=== PATIENT | male | born 1935 | race Caucasian/White ===

== ENCOUNTER 2016-09-16 12:03 | Emergency (ER) | payer MEDICARE ==
[~2016-09-16] VITALS: Ht 181.6 cm; Wt 100.0 kg
[~2016-09-16 12:03] MED LIST: ALBU8.5H2 IH; AMT25T PO; ASPI-973 PO; ATOR40TA69 PO; CLOP75TA28 PO; DIPH50C PO; HYDR-3740 PO; LORA1TAB PO; LOSA25TA21 PO; METF500T4 PO; METO-272 PO; MONT10TA23 PO; MULT-1018 PO; NITR0.4T6 SL; OMEG100027 PO; OMEP20CA11 PO; POTA10TA38 PO; RANI300C PO; TAMS0.4C29 PO; TRAZ-115 PO; VENL75CA PO
[2016-09-16 12:24] VITALS: BP 120/76; PULSE 75; RESP 16; O2SAT 91
[2016-09-16] MEDS ORDERED: DULO60CA61 (12:38)
[2016-09-16] MEDS ORDERED: POTA10TA12 (12:38)
[2016-09-16] MEDS ORDERED: RANI300T4 (12:38)
[2016-09-16 13:18] LABS: BASOPHILS % (AUTO) 0.2 % (0-3); EOSINOPHILS % (AUTO) 2.7 % (0-5); MONOCYTES % (AUTO) 9.7 % (4-12); Mean Corpuscular Hemoglobin 32.1 pg (27.0-35.0); Mean Corpuscular Volume 94.6 fL (81-100); NEUTROPHILS % (AUTO) 57.5 % (40-74); Platelet Count 182 bil/L (150-400)
[2016-09-16 14:07] LABS: TROPONIN T < 0.010 ug/L (0.0-0.011)
[2016-09-16 14:30] VITALS: BP 123/81; PULSE 69; RESP 20; O2SAT 94
--- NOTE | 2016-09-16 15:47 | ED.REPORT ---
HPI-General Illness Date of Service Sep 16, 2016 ED Provider: LadonnaRoberto DO 81yoM with PMH remarkable for CAD/NSTEMI and anxiety presents with 1 week of stated bilateral leg weakness. The patient states that over the last week he has had increasing weakness and fatigue in his legs which is described as endurance based. The patient denies trouble standing but says that he feels he has to shuffle his feet in baby steps to walk. The patient denies leg swelling, loss of coordination, pain, or numbness and tingling. The patient states that he has also had one bout of urinary incontinence with increased urinary frequency and urgency. The patient denies prior history of UTI or current dysuria or penile discharge. The patient denies pain on defecation or bowel incontinence. The patient recently had an MRI done in June and he does not know the results. He recently increased a medication by his PCP but he does not know which medication. Nursing Notes Stated Complaint: Bilateral Leg weakness Chief Complaint: General Complaint Nursing Notes Reviewed: Yes Allergies: Coded Allergies: Contrast Media (Verified Allergy, Severe, 09/20/15) Uncoded Allergies: IV CONTRAST (Allergy, Unknown, 02/04/13) Scheduled Amitriptyline (Amitriptyline) 25 Mg Tab 25 MG PO DAILY Aspirin (Aspirin) 81 Mg Tablet 81 MG PO DAILY Atorvastatin Calcium (Atorvastatin Calcium) 40 Mg Tablet 40 MG PO HS Clopidogrel (Clopidogrel) 75 Mg Tablet 75 MG PO DAILY Diphenhydramine Hcl (Benadryl) 50 Mg Capsule 25 MG PO HS Losartan Potassium (Losartan Potassium) 25 Mg Tablet 25 MG PO DAILY Metformin (Metformin) 500 Mg Tablet 500 MG PO BID Metoprolol Succinate ER (Metoprolol Succinate ER) 50 Mg Tab.er.24h 50 MG PO DAILY Montelukast (Montelukast) 10 Mg Tablet 10 MG PO HS Multivitamin (Multi Vitamin Daily) 1 Each Tablet 1 EACH PO DAILY [place]-3/Dha/Epa/Fish Oil ([place]-3 Fish Oil 1,000 mg Sfgl) 1,000 Mg Capsule 1, 000 MG PO DAILY Omeprazole (Omeprazole) 20 Mg Capsule.dr 20 MG PO DAILY Potassium Chloride (Potassium Chloride) 10 Meq Tab.er.prt 10 MEQ PO DAILY TAKE WITH FOOD Ranitidine (Ranitidine) 300 Mg Capsule 300 MG PO HS Tamsulosin ER (Tamsulosin ER) 0.4 Mg Cap.er.24h 0.4 MG PO DAILY Trazodone (Trazodone) 50 Mg Tablet 100 MG PO HS Venlafaxine ER (Effexor XR) 75 Mg Capsule 75 MG PO DAILY Scheduled PRN Albuterol HFA (Proair HFA) 8.5 Gm Hfa.aer.ad 2 PUFFS IH Q4 PRN PRN For Shortness of Breath Hydrocodone-Acetaminophen 10-325 mg (Hydrocodone-Acetaminophen 10-325 mg) 1 Each Tablet 1 TABLET PO Q6H PRN PRN For Pain Lorazepam (Lorazepam) 1 Mg Tablet 1-2 MG PO HS PRN PRN For Insomnia Miscellaneous Medications Duloxetine (Duloxetine) 60 Mg Capsule. Nitroglycerin SL (Nitroglycerin SL) 0.4 Mg Tab.subl 0.4 MG SL Potassium Chloride ER (Potassium Chloride ER) 10 Meq Tablet Ranitidine (Ranitidine) 300 Mg Tablet General Time Seen by MD: 13:00 Chief Complaint Urinary frequency, Weakness (bilateral leg) Hx Obtained From: Patient, Spouse Arrived By: Ambulance Sudden in Onset?: No Onset Occurred: 1 week ago Symptom Duration: Since onset Recent Healthcare: Recent doctor visit Similar Sx Previous: No Past Medical History Past Medical History Obstructive sleep apnea on Cpap Psoriasis Reports: Asthma, Coronary artery disease, Diabetes mellitus, GERD, Hyperlipidemia, Hypertension Reports: Obesity Past Surgical History Stents x5 Reports: Appendectomy, Cataract surgery Reports: Hip replacement, Knee replacement Smoking History Former Smoker Social History Alcohol Use: Denies alcohol use Drug Use: Denies drug use Ambulatory Status Cane Review of Systems Full Review of Systems Constitutional: Denies: Chills, Fever Eyes: Denies: Blurred bilateral, Eye pain bilateral Ears / Nose / Throat: Denies: Ear ringing bilateral, Hearing loss bilateral, Sore throat, Throat pain Respiratory: Denies: Hemoptysis, Non-productive cough, Pleuritic pain Cardiovascular: Denies: Chest pain, Edema, Palpitations GI: Denies: Abdominal pain, Constipation, Diarrhea, Nausea, Vomiting Male: Reports Urinary frequency, Reports Urinary urgency, Reports Urination increased, Denies Dysuria, Denies Flank pain, Denies Hematuria, Denies Penile discharge Musculoskeletal: Denies: Back pain, Extremity pain, Extremity swelling, Joint pain, Lumbar pain, Neck pain, Thoracic pain Hematologic: Denies Bleeding, Denies Bruising Endocrine: Reports: Polyuria, Denies: Polydipsia, Weight gain, Weight loss Skin: Denies Itching, Denies Rash, Denies Swelling Allergy / Immune: Denies: Rhinorrhea, Sneezing Neurologic: Reports: Bladder dysfunction, Lightheaded (one time on standing), Problem walking, Denies: Bowel dysfunction, Change LOC, Confusion, Dizziness, Headache, Numbness, Slurred speech, Syncope Psychiatric: Denies: Change mental status, Confusion Complete sys rev & neg: except as marked. Physical Exam Vital Signs Vital Signs Date Time Temp Pulse Resp B/P Pulse Ox O2 Delivery O2 Flow Rate FiO2 09/16/16 17:17 36.6 94 18 135/83 94 Room Air 09/16/16 14:30 69 20 123/81 94 Room Air 09/16/16 12:24 36.6 75 16 120/76 91 Room Air Initial VS: Reviewed General/Constitutional: Well-developed, Well-nourished Head / Eyes: Atraumatic, Normocephalic, PERRL ENT: Mucous membranes moist, Conjunctiva normal, No scleral icterus Neck: Supple, Non-tender, Full range of motion Respiratory: Breath sounds normal, Clear to auscultation, No respiratory distress Cardiovascular: Regular rate & rhythm, Heart sounds normal, Intact distal pulses Abdomen / GI: Soft, Non-tender, No guarding, No rebound, No distention Back: No CVA tenderness Lymphatic: No lymphadenopathy Extremities: Vascular intact, Neuro intact, No swelling, No tenderness Skin: Warm, Dry, No cyanosis Neurologic: Alert, Oriented, Nonfocal Psychiatric: Mood/affect normal, Behavior normal, Normal thought content General/Constitutional: Awake, Alert, No acute distress, Well appearing, Cooperative, Not toxic appearing Head / Eyes: Normocephalic, PERRL, EOMI, No photophobia, No scleral icterus, Conjunctiva NL ENT: Airway patent, Mucous membranes moist, Pharynx NL Neck: Supple, No meningismus, Full range of motion, No swelling, Non-tender, No masses Respiratory / Chest: Breath sounds NL, Breath sounds = bilat, No respiratory distress, No rales, No rhonchi, No wheezing, No chest tenderness Cardiovascular: Heart rate NL, Regular rhythm, Heart sounds NL, Cap refill not delayed, Peripheral circulation NL Abdomen: Soft, Non-tender, No guarding, No rebound, BS normoactive, No distention Lower Extremity / Pelvis / MS: Inspection NL, No swelling, Non-tender, No erythema, No deformity, Neurologic intact, Vascular intact, No edema Ankle / Foot: Inspection NL, No swelling, No erythema, Non-tender, No deformity , Neurologic intact, Vascular intact, No edema Neurologic: Speech NL, No motor deficits, No sensory deficits, CN II - XII intact, Cerebellar NL Interpretation & Diagnostics Lab Results Interpretation Result Diagram: 09/16/16 1310 09/16/16 1310 Test 09/16/16 12:33 09/16/16 13:10 09/16/16 15:21 Hold [place] Top Tube Received (Received) White Blood Count 8.2th/mm3 (3.8-10.1) Red Blood Count 4.08mil/mm3 (4.40-5.80) Hemoglobin 13.1g/dL (13.8-17.2) Hematocrit 38.6% (41.0-50.0) Mean Corpuscular Volume 94.6fL (81-100) Mean Corpuscular Hemoglobin 32.1pg (27.0-35.0) Mean Corpuscular Hemoglobin Concent 33.9% (32.0-37.0) Red Cell Distribution Width 12.4% (12.3-15.4) Platelet Count 182bil/L (150-400) Neutrophils (%) (Auto) 57.5% (40-74) Lymphocytes (%) (Auto) 29.5% (14-46) Monocytes (%) (Auto) 9.7% (4-12) Eosinophils (%) (Auto) 2.7% (0-5) Basophils (%) (Auto) 0.2% (0-3) Sodium Level 137mEq/L (134-144) Potassium Level 3.9mEq/L (3.5-5.2) Chloride Level 101mEq/L (97-108) Carbon Dioxide Level 20mmol/L (18-29) Blood Urea Nitrogen 11mg/dL (8-27) Creatinine 0.79mg/dL (0.76-1.27) Estimat Glomerular Filtration Rate 101mL/min (>59) Glucose Level 119mg/dL (60-99) Calcium Level 8.9mg/dL (8.5-10.1) Magnesium Level 1.6mg/dL (1.6-2.6) Total Bilirubin 0.8mg/dL (0.0-1.2) Aspartate Amino Transf (AST/SGOT) 22U/L (0-50) Alanine Aminotransferase (ALT/SGPT) 16U/L (0-44) Alkaline Phosphatase 46U/L (25-160) Troponin T < 0.010ug/L (0.0-0.011) Pro-B-Type Natriuretic Peptide 39.6pg/mL (0-486) Total Protein 7.3g/dL (6.4-8.4) Albumin 3.9g/dL (3.4-5.0) Urine Color Straw (YELLOW) Urine Appearance Hazy (CLEAR,HAZY) Urine pH 6.0 (5.0-8.0) Urine Specific [place] 1.025 (1.003-1.035) Urine Protein Negativemg/dL (NEG,TRACE) Urine Glucose (UA) Negativemg/dL (NEGATIVE) Urine Ketones Negativemg/dL (NEGATIVE) Urine Occult Blood Negative (NEGATIVE) Urine Nitrite Negative (NEGATIVE) Urine Bilirubin Negative (NEGATIVE) Urine Urobilinogen 1.0mg/dL (NORMAL) Urine Leukocyte Esterase Negative (NEGATIVE) Urine RBC 0-2/hpf (0-2) Urine WBC 0-5/hpf (0-5) Urine Epithelial Cells None/hpf (NONE-MOD) Urine Crystals None seen (NONE SEEN) Urine Bacteria None/hpf (NONE-FEW) Urine Hyaline Casts None/lpf (NONE) Urine Granular Casts None seen (NONE SEEN) Urine Waxy Casts None seen (NONE SEEN) Urine Red Blood Cell Casts None seen (NONE SEEN) Urine White Blood Cell Casts None seen (NONE SEEN) Urine Mucus None seen (None Seen) Urine Trichomonas None seen (NONE SEEN) Urine Yeast None (NONE SEEN) Urinalysis Comment None Urine Culture Reflexed Not indicated Re-Eval/Medical Decision Med Decision/Clinical Course 81yoM with bilateral leg weakness and increased urinary frequency and urgency. UTI negative on UA. Other possible considerations but less likely include chronic prostatitis infection. Patient told to decrease dosage of Hydrocodone back to previous dosing and follow up with his PCP in 1 week for further evaluation. Counseled Regarding: Diagnosis, Need for follow-up, When/why to return to ED Discharge & Departure Primary Impression: Bilateral leg weakness Additional Impressions: Physical deconditioning Medication side effect Ruled Out: Myocardial infarction, Stroke Disposition: Home Discharge Condition All VS Reviewed: Yes Condition: Stable Patient Instructions: Hydrocodone/Acetaminophen (By mouth) Additional Instructions: During you visit to [facility] Emergency Department we obtained blood work for infectious markers, hemoglobin levels, and electrolytes as well as urine for infectious markers. Given your description of increased urinary frequency and urgency as well as one time incontinence you have a clinical diagnosis of urinary tract infection, however your urinalysis failed to reveal any infection. Unfortunately we could not find a diagnosis for your leg weakness. We were able to watch you ambulate and able to rule out significant causes for your weakness. Your weakness is likely due to general deconditioning or possibly a side effect of one of the many drugs you are on currently. Observing records indicate that Dr. Perez likely last changed your chronic pain medication which could be the cause of your weakness. Please return to your previous dosing of Hydrocodone. Your vital signs were stable and safe for discharge. Do not hesitate to call emergency services or your primary care physician if you experience any of the following. - High unrelenting fevers. - Uncontrolled vomiting. - Severe hypotension. - Dizziness or loss of consciousness. - Chest pain or severe shortness of breath. Besides decreasing your dose of Hydrocodone to your previous dosing regimen, please call your primary care physicians office as soon as possible after discharge from the [facility] ED schedule a follow up with your primary care physician in 1 weeks time following your emergency department visit for medication checks given that you have described a change in medication and general well-being. Referrals: Gurdeep Perez MD (PCP) Attending Statement The patient was seen and examined together with Dr. Giang on 09/16/16 and I have added additional information to the note above. copies to: Gurdeep Perez MD, Nicholas K DO Sep 16, 2016 13:28 Roberto Dougherty DO Sep 17, 2016 06:04
[2016-09-16] MEDS ORDERED: Amoxicillin-Clav 875-125 mg Tablet PO ONE (15:50)
[2016-09-16 15:54] LABS: APPEARANCE,URINE HAZY (CLEAR,HAZY); COLOR,URINE STRAW (YELLOW); OCCULT BLOOD,URINE NEGATIVE (NEGATIVE)
[2016-09-16] MEDS ORDERED: AMOX-366 PO (15:58)
[2016-09-16 17:17] VITALS: BP 135/83; PULSE 94; RESP 18; O2SAT 94
== END 2016-09-16 17:18 | disposition home or self-care (01) ==
LOC: EDBD 12:03 → SED 12:03
DX: R53.1 Weakness (principal); R53.81 Other malaise; R32 Unspecified urinary incontinence; R39.15 Urgency of urination; R35.0 Frequency of micturition; T40.2X5A Adverse effect of other opioids, initial encounter; Y93.89 Activity, other specified; Y92.89 Other specified places as the place of occurrence of the external cause; Y99.8 Other external cause status; I11.9 Hypertensive heart disease without heart failure; E11.59 Type 2 diabetes mellitus with other circulatory complications; I25.10 Atherosclerotic heart disease of native coronary artery without angina pectoris; J45.909 Unspecified asthma, uncomplicated; K21.9 Gastro-esophageal reflux disease without esophagitis; E78.5 Hyperlipidemia, unspecified; Z95.5 Presence of coronary angioplasty implant and graft; Z79.82 Long term (current) use of aspirin; Z79.84 Long term (current) use of oral hypoglycemic drugs; Z87.891 Personal history of nicotine dependence; Z91.041 Radiographic dye allergy status

== ENCOUNTER 2017-04-20 17:17 | Inpatient (IN) | payer MEDICARE ==
[~2017-04-20] VITALS: Ht 180.3 cm; Wt 111.5 kg
[~2017-04-20 17:17] MED LIST changes: +DULO60CA61; -METO-272 PO; +METO-369 PO; +NITR0.4T38 SL; -NITR0.4T6 SL; +POTA10TA12; +RANI300T4
[2017-04-20 17:22] VITALS: BP 141/78; PULSE 64; RESP 16; O2SAT 95
--- NOTE | 2017-04-20 17:43 | ED.REPORT ---
HPI-Extremity Problem Lower Date of Service Apr 20, 2017 ED Provider: Willie Plascencia MD Pt is a 81 y/o male with a history of cardiac stent placement, DM, and degenerative joint disease who presents to the ED complaining of left hip pain s /p falling on the ground onset prior to arrival. He states that he was getting up off his chair when he lost his balance, and fell to the ground. Additional symptoms include left leg pain and rib pain that he had injured previously, but worsened today. Pt denies lightheadedness, dizziness, or LOC. He ambulates with a cane normally. Nursing Notes Stated Complaint: GROUND LEVEL FALL Chief Complaint: Extremity Trauma Nursing Notes Reviewed: Yes Allergies: Coded Allergies: Contrast Media (Verified Allergy, Severe, 04/20/17) Uncoded Allergies: IV CONTRAST (Allergy, Unknown, 02/04/13) Scheduled Aspirin (Aspirin) 81 Mg Tablet 81 MG PO DAILY Atorvastatin Calcium (Atorvastatin Calcium) 40 Mg Tablet 40 MG PO HS Clopidogrel (Clopidogrel) 75 Mg Tablet 75 MG PO DAILY Diphenhydramine Hcl (Benadryl) 50 Mg Capsule 25 MG PO HS Losartan Potassium (Losartan Potassium) 25 Mg Tablet 25 MG PO DAILY Metformin (Metformin) 500 Mg Tablet 500 MG PO BID Metoprolol Succinate ER (Metoprolol Succinate ER) 50 Mg Tab.er.24h 50 MG PO DAILY Montelukast (Montelukast) 10 Mg Tablet 10 MG PO HS Multivitamin (Multi Vitamin Daily) 1 Each Tablet 1 EACH PO DAILY [place]-3/Dha/Epa/Fish Oil ([place]-3 Fish Oil 1,000 mg Sfgl) 1,000 Mg Capsule 1, 000 MG PO DAILY Omeprazole (Omeprazole) 20 Mg Capsule.dr 20 MG PO DAILY Potassium Chloride (Potassium Chloride) 10 Meq Tab.er.prt 10 MEQ PO DAILY TAKE WITH FOOD Ranitidine (Ranitidine) 300 Mg Capsule 300 MG PO HS Tamsulosin ER (Tamsulosin ER) 0.4 Mg Cap.er.24h 0.4 MG PO DAILY Scheduled PRN Albuterol HFA (Proair HFA) 8.5 Gm Hfa.aer.ad 2 PUFFS IH Q4 PRN PRN For Shortness of Breath Hydrocodone-Acetaminophen 10-325 mg (Hydrocodone-Acetaminophen 10-325 mg) 1 Each Tablet 1 TABLET PO Q6H PRN PRN For Pain Lorazepam (Lorazepam) 1 Mg Tablet 1-2 MG PO HS PRN PRN For Insomnia Miscellaneous Medications Duloxetine (Duloxetine) 60 Mg Capsule. Nitroglycerin SL (Nitroglycerin SL) 0.4 Mg Tab.subl 0.4 MG SL Potassium Chloride ER (Potassium Chloride ER) 10 Meq Tablet Ranitidine (Ranitidine) 300 Mg Tablet General Time Seen by MD: 17:41 Chief Complaint Hip injury left Hx Obtained From: Patient, Spouse Arrived By: Ambulance Onset Occurred: Just prior to arrival Symptom Duration: Constant Caused by: Fall on ground Quality: Painful Severity: Current: Moderate Severity: Maximum: Moderate Recent Healthcare: No recent doctor visit, No recent hospitalization Past Medical History Past Medical History Obstructive sleep apnea on Cpap Psoriasis Reports: Asthma, Coronary artery disease, Diabetes mellitus, GERD, Hyperlipidemia, Hypertension Reports: Obesity Past Surgical History Stents x5 Reports: Appendectomy, Cataract surgery Reports: Hip replacement, Knee replacement Smoking History Former Smoker Social History Alcohol Use: Denies alcohol use Drug Use: Denies drug use Other Social History: Good social support Ambulatory Status Cane Review of Systems Rib pain, worsened Musculoskeletal: Reports: Extremity pain (left leg ), Joint pain (left hip) Neurologic: Denies: Change LOC, Dizziness, Lightheaded Complete sys rev & neg: except as marked. Physical Exam Initial Vital Signs Vital Signs (First) Date Time Temp Pulse Resp B/P Pulse Ox O2 Delivery O2 Flow Rate FiO2 04/20/17 17:22 36.4 64 16 141/78 95 Room Air Initial VS: Reviewed Head / Eyes: Atraumatic, Normocephalic Neck: Supple, Full range of motion Upper Extremities: Vascular intact, Neuro intact, No swelling, No tenderness Skin: Warm, Dry, No cyanosis Neurologic: Alert, Oriented, Nonfocal Psychiatric: Mood/affect normal, Behavior normal, Normal thought content Lower Extremity / Pelvis / MS: Neurologic intact, Vascular intact Tenderness to left hip with good range of motion Ankle / Foot: Neurologic intact, Vascular intact General/Constitutional: Awake, Alert Respiratory / Chest: Breath sounds NL, Breath sounds = bilat, No respiratory distress Right lateral rib tenderness Cardiovascular: Heart rate NL, Regular rhythm, Heart sounds NL Interpretation & Diagnostics X-Ray Interpretation Xray Interpretation: IMPRESSION: Proximal left femoral fracture. Arthroplasty appears intact. Dictated by: Senia Bautista M.D. on 04/20/2017 at 18:06 Approved by: Senia Bautista M.D. on 04/20/2017 at 18:07 X-Ray Ordered: Hip left Interpretation / Wet Read by: Interpret - Radiologist Re-Eval/Medical Decision Source of Hx: Old records Re-Evaluation/Progress : Time of Eval: 18:19 Re-Evaluation/Progress Note: Pt rechecked. Discussed x-ray results and need for admission. Pt understands and agrees with plan. All questions addressed. Consultation #1: Referral / Consult Name: Avel Watson DO Consulted With: Orthopedic Call Returned at: 18:25 Duster Tender: Will see patient, Agrees with eval, Agrees with plan Note: Dicussed pt's case with orthopedic surgeon, Dr. Watson. He will see the pt. Consultation #2: Referral / Consult Name: Andrea Lazaro MD Consulted With: Hospitalist Call Returned at: 19:09 Duster Tender: Will see patient, Agrees with plan, Accepts admit Note: Discussed pt's case with hospitalist, Dr. Lazaro. He accepts admission. Counseled Regarding: Diagnosis, Lab results, Need for admission Discharge & Departure Impression: Primary Impression: Fracture of left hip Disposition: ADMITTED TO HOSPITAL Discharge Condition All VS Reviewed: Yes Condition: Stable Referrals: Gurdeep Perez MD (PCP) Scribe Attestation Portions of this note were transcribed by Lindsay Robles. I, Dr. Plascencia, personally performed the history, physical exam and medical decision-making; I reviewed and confirmed the accuracy of the information in the transcribed note. copies to: Gurdeep Perez MD, Kirk H MD Apr 20, 2017 17:43 Lindsay Robles Apr 20, 2017 18:02 Willie Plascencia MD Apr 20, 2017 17:43 Lindsay Robles Apr 20, 2017 18:02
--- NOTE | 2017-04-20 18:09 | DRSVH ---
PROCEDURE: X-RAY LEFT HIP COMPLETE, MINIMUM TWO VIEWS ([id number]) INDICATIONS: twisting injury TECHNIQUE: 2 views of the hip were acquired. COMPARISON: [facility], CR, PELVIS W/LAT HIP (LT) (PNL), , 11:34. [facility], CR, HIP COMP MIN 2VW (LT), 05/23/2009, 11:50. FINDINGS: Bones: Left hip arthroplasty is present. There is a fracture with fracture fragments visualized withi n the femoral shaft below the greater trochanter. There is no displacement. Soft tissues: No suspicious soft tissue calcifications or masses. IMPRESSION: Proximal left femoral fracture. Arthroplasty appears intact. Dictated by: Senia Bautista M.D. on 04/20/2017 at 18:06 Approved by: Senia Bautista M.D. on 04/20/2017 at 18:07
[2017-04-20] MEDS ORDERED: Polyethylene Glycol (PEG) 17 Gm Powder PO PRN (19:45)
[2017-04-20] MEDS ORDERED: Ondansetron 2 mg/mL 2 mL Inj IVPUSH PRN (19:45)
[2017-04-20] MEDS ORDERED: Alum-Mag Hydrox-Simeth 30 mL Suspension PO PRN (19:45)
[2017-04-20] MEDS ORDERED: Glucose 40% Oral Gel 15 Gm Tube PO PRN (19:50)
[2017-04-20] MEDS ORDERED: DULoxetine 30 mg DR Capsule PO SCH (20:00)
[2017-04-20] MEDS ORDERED: Albuterol 2.5 mg/3 mL Inhalation Solution NEB PRN (20:14)
--- NOTE | 2017-04-20 20:26 | PCM.HPMED ---
Subjective Date of Service Apr 20, 2017 Primary Provider: Admitting Physician: Andrea Lazaro MD Primary Care Physician: Gurdeep Perez MD Attending Physician: Andrea Lazaro MD Chief Complaint: Hip Pain History of Present Illness: Patient is a 81 y/o male with past medical history of CAD with multiple stents, non-insulin requiring type 2 Diabetes, and Obstructive Sleep Apnea who presents after a ground level fall earlier today around 1700. Patient was standing up from his chair when he lost his balance and fell on his left side. Patient denies striking his head, LOC, or any other trauma from the fall. Patient denies any lightheadedness, dizziness, CP, SOB, palpitations, N/V /D, or urinary sxs. Patient reports 6/10 dull pain on the posterior portion of his left hip. Denies any numbness or tingling in his lower extremities. Patient does state that over the past few years, he has felt unsteady on his feet, but attributes this to age. He states that two weeks ago he was bending down to pick something up and bumped his right side which has caused him pain in his right ribs. Pt c/o 6/10 pain in his right ribs in the ED. Review of Systems: ROS negative unless otherwise noted above. Allergies Coded Allergies: Contrast Media (Verified Allergy, Severe, 04/20/17) Uncoded Allergies: IV CONTRAST (Allergy, Unknown, 02/04/13) Home Medications Omeprazole 20mg daily PO Loratadine 10mg daily PO Losartan 25mg daily PO Potassium Chloride 10MeQ PO Duloxetine 60mg HS PO Memantine 10mg PO Ranitidine 300mg HS PO Metoprolol 50mg daily PO Clopidogrel 75mg daily PO ASA 81mg daily PO Montelukast 10mg HS PO Tamsulosin 0.4mg daily PO PMH CAD with stents DMT2 DJD ELGIN with CPAP Asthma GERD Hyperlipidemia HTN Surgical History Appendectomy L Hip Replacement Stents x5 Family History Noncontributory Social History Hx Alcohol Use: No Hx Substance Use: No Hx Tobacco Use: Yes (not for over 40 years) Smoking Status: Former Smoker (Quit 50 years ago) Living Arrangement: with Family Exam Vital Signs Vital Sign - Last Date Time Temp Pulse Resp B/P Pulse Ox O2 Delivery O2 Flow Rate FiO2 04/20/17 17:22 36.4 64 16 141/78 95 Room Air Exam Constitutional: Awake, Alert and oriented x3, no acute distress Head: normocephalic and atraumatic Eyes: pupils equal round and reactive, no slceral icterus Heart: regular rate and rhythm. no murmurs, rubs. or gallops. No peripheral edema, peripheral pulses intact bilaterally. Lungs: clear to auscultation bilaterally, no wheeze, rales, or rhonchi. Right sided rib tenderness to palpaiton along lateral ribs 8-9. ABD: soft, nontender, bowel sounds present throughout Musculoskeletal: Moves bilateral UE without pain. Unable to move LLE extremity secondary to pain. Able to move RLE. Skin: warm, dry, no rash, no ecchymosis Neuro: CN II-XII intact. no focal deficits. Normal senstion to bilateral lower extremities. Psych: appropriate mood and affect. Lab and Diagnostics Labs Item Value Date Time Red Blood Count 4.08 mil/mm3 L 09/16/161309 Mean Corpuscular Volume 94.6 fL 09/16/16 1310 Mean Corpuscular Hemoglobin 32.1 pg 09/16/16 1310 Mean Corpuscular Hemoglobin Concent 33.9 % 09/16/161309 Red Cell Distribution Width 12.4 % 09/16/16 1310 Neutrophils (%) (Auto) 57.5 % 09/16/16 1310 Lymphocytes (%) (Auto) 29.5 % 09/16/16 1310 Monocytes (%) (Auto) 9.7 % 09/16/16 1310 Eosinophils (%) (Auto) 2.7 % 09/16/16 1310 Basophils (%) (Auto) 0.2 % 09/16/16 1310 Lymphocytes % 26 % 10/15/10 1405 Monocytes % 11 % 10/15/10 1405 Eosinophils % 2 % 10/15/10 1405 Basophils % 0 % 10/15/10 1405 Estimat Glomerular Filtration Rate 101 mL/min 09/16/16 1310 Hemoglobin A1c 6.0 % H 09/20/15 1400 Calcium Level 8.9 mg/dL 09/16/16 1310 Magnesium Level 1.6 mg/dL 09/16/16 1310 Total Bilirubin 0.8 mg/dL 09/16/16 1310 Aspartate Amino Transf (AST/SGOT) 22 U/L 09/16/16 1310 Alanine Aminotransferase (ALT/SGPT) 16 U/L 09/16/16 1310 Alkaline Phosphatase 46 U/L 09/16/16 1310 Total Creatine Kinase 88 U/L 09/20/15 2241 Creatine Kinase MB 1.6 ng/mL 09/20/15 2241 Troponin T < 0.010 ug/L 09/16/16 1310 Pro-B-Type Natriuretic Peptide 39.6 pg/mL 09/16/16 1310 Total Protein 7.3 g/dL 09/16/16 1310 Albumin 3.9 g/dL 09/16/16 1310 Triglycerides Level 163 mg/dL H 09/21/15 0611 Cholesterol Level 89 mg/dL L 09/21/15 0611 LDL Cholesterol, Calculated 22.400 mg/dL 09/21/15 0611 VLDL Cholesterol 32.600 mg/dL 09/21/15 0611 HDL Cholesterol 34 mg/dL 09/21/15 0611 Cholesterol/HDL Ratio 2.62 09/21/15 0611 X-Rays, CTs and MRIs PROCEDURE: X-RAY LEFT HIP COMPLETE, MINIMUM TWO VIEWS IMPRESSION: Proximal left femoral fracture. Arthroplasty appears intact. Dictated by: Senia Bautista M.D. on 04/20/2017 at 18:06 PROCEDURE: X-RAY CHEST ONE VIEW, PORTABLE IMPRESSION: 1. Slight appearance of lucency below the right hemidiaphragm, as described above. This is suspected to be related to interposition of colon, given the appearance on prior exam. However, if there is concern for free air, abdominal series is recommended for additional evaluation. Dictated by: Senia Bautista M.D. on 04/20/2017 at 21:07 Assessment & Plan Patient is a 81 y/o male with past medical history of CAD with multiple stents, non-insulin requiring type 2 Diabetes, and Obstructive Sleep Apnea who presents after a ground level fall earlier today around 1700. Patient has a proximal left femoral fracture. - Acute Fracture of the Left Proximal Femur, POA, Active, Stable - Patient experienced a fracture from a ground level fall, no LOC, no displacement - Ortho was consulted and will evaluate patient tomorrow, recommends partial weight bearing with PT tomorrow to evaluate function - Morphine PRN - Serum Vitamin D to evaluate for Osteoporosis due to fracture after a ground level fall. - PT ordered - SubQ Heparin for DVT prophylaxis. -Acute Leukocytosis, POA, Active, Stable - Patient has a WBC of 12 without a left shift, likely secondary to inflammatory response from fracture - Monitor with AM CBC - UA negative for infection -History of Obstructive Sleep Apnea, Chronic, Stable - Nightly CPAP oxygen - History of DMT2, Chronic, Stable - Hold home dose of Metformin - Insulin gtt - History of HTN, Chronic, Stable - Continue home dose Metoprolol - Continue home dose of Losartan PATIENT IS FULL CODE Due to complexity of case and level of care needed, patient is admitted under inpatient status with an expected length of stay greater than 2 midnights. Pain Evaluation: Adequate Pain Control GI Prophylaxis: Proton Pump Inhibitor VTE Prophylaxis Indicated: Meets Criteria for Anticoag Therapy VTE Prophylaxis: Sub-Q Heparin (Unfractionated), SCDs VTE Mechanical Devices: Intermittant Pneumatic CD Resuscitation Status: CPR: Attempt Resuscitation Attending Statement The patient was seen and examined together with Dr. Lama on 04/20 and I agree with the history, exam and plan as outlined in the note above. Zhen Lama DO Apr 20, 2017 20:26 Andrea Lazaro MD Apr 21, 2017 06:25
[2017-04-20 20:33] VITALS: BP 153/78; PULSE 62; RESP 16; O2SAT 94
--- NOTE | 2017-04-20 21:10 | DRSVH ---
PROCEDURE: X-RAY CHEST ONE VIEW, PORTABLE ([id number]) INDICATIONS: Right Rib Pain TECHNIQUE: One view of the chest was acquired. COMPARISON: None. FINDINGS: Surgical changes and devices: None. Lungs and pleura: No pleural effusions or pneumothorax. Lungs are clear. There is an appearance of slight lucency below the right hemidiaphragm. However, this is also present, although less prominent on the 09/30/16 exam. Mediastinum: Mediastinal contours appear normal. Heart size is normal. Bones and chest wall: No suspicious bony lesions. Overlying soft tissues appear unremarkable. IMPRESSION: 1. Slight appearance of lucency below the right hemidiaphragm, as described above. This is suspected to be related to interposition of colon, given the appearance on prior exam. However, if there is con cern for free air, abdominal series is recommended for additional evaluation. Dictated by: Senia Bautista M.D. on 04/20/2017 at 21:07 Approved by: Senia Bautista M.D. on 04/20/2017 at 21:09
[2017-04-20 21:14] LABS: BASOPHILS % (AUTO) 0.2 % (0-3); EOSINOPHILS % (AUTO) 1.8 % (0-5); MONOCYTES % (AUTO) 9.2 % (4-12); Mean Corpuscular Hemoglobin 32.8 pg (27.0-35.0); Mean Corpuscular Volume 94.6 fL (81-100); NEUTROPHILS % (AUTO) 65.9 % (40-74); Platelet Count 184 bil/L (150-400)
[2017-04-20] MEDS: HYDROcodone-APAP 10-325 mg PO PRN (21:14)
[2017-04-20 21:20] LABS: INR 1.04 ratio
--- NOTE | 2017-04-20 21:59 | CONS ---
[address] [place] [address] CONSULTATION REPORT PATIENT: ERNIE JUSTIN : 1935 MR#: [id number] ADMIT: 04/20/2017 JOB ID: [id number] DATE OF SERVICE: 04/20/2017 CHIEF COMPLAINT: Left hip pain. HISTORY OF PRESENT ILLNESS: The patient is a 81-year-old male who has a history of left total hip arthroplasty, who fell when he lost his balance today, landing on his left hip. He states that he had the left total hip performed about five years ago and has not had any problems with it since that time. He uses a cane normally for ambulation. He had onset of severe acute pain and was unable to ambulate after the fall. PAST MEDICAL HISTORY: Significant for diabetes mellitus, coronary artery disease, and hypertension. PAST SURGICAL HISTORY: Includes left total hip arthroplasty. Appendectomy and cardiac stenting. ALLERGIES: No known drug allergies. PHYSICAL EXAMINATION: Blood pressure 153/78, pulse rate 62, respirations 16, temperature 36.6. He is alert and cooperative in no acute distress. His left hip has some pain with range of motion of the trochanter. No significant pain in the thigh. He has a well-healed posterior approach surgical scar. He is unable to straight leg raise. His foot is warm, pink, and well perfused with no significant edema present. X-rays demonstrate a left greater trochanter fracture. His prosthetic hip components appear to be well fixed and did not have evidence of loosening. ASSESSMENT: Left trochanteric fracture of hip, status post total hip arthroplasty. PLAN: I would recommend that he try working with Physical Therapy, partial weightbearing on the left lower extremity to see how he does with this. If he continues to be unable to walk or his fracture displaces, we can consider cabling, going to surgery to cable his trochanter and femur for additional fixation, but hopefully this will not be necessary. Will allow him to eat tomorrow and see how he does with Physical Therapy and reassess.
[2017-04-20] MEDS: Insulin LISPRO 300 Unit/3 mL Inj SUBQ SCH (22:00)
[2017-04-20] MEDS: HYDROmorphone 0.5 mg/0.5 mL iSecure Syringe IVPUSH PRN (22:44)
--- NOTE | 2017-04-20 23:00 | NUR ---
Arrival to [facility] / Pain Arrived to unit at 2019, transferred via slideboard. Pt at bedside. Pt given dinner and juice to drink, blood sugar checked 1 hr later and WNL no insulin coveraged required. After surgeon visits PT it is determined he will not be NPO at midnight, no plan for surgery at this time, Patient and aware. Pain managed with PRN norco and 0.5 dilauded IV. Per ELGIN pt is on cpox and 2L nc as needed to maintain SaO2. IF pt remains in hospital further his family will bring in home CPAP. No SOB or CP. Care continues
[2017-04-20] MEDS: DULoxetine 30 mg DR Capsule PO SCH (23:19)
[2017-04-20 23:34] LABS: APPEARANCE,URINE CLEAR (CLEAR,HAZY); COLOR,URINE YELLOW (YELLOW); OCCULT BLOOD,URINE NEGATIVE (NEGATIVE); UROBILINOGEN,URINE NORMAL (NORMAL)
[2017-04-21 00:55] VITALS: BP 124/73; PULSE 88; RESP 16; O2SAT 93
[2017-04-21] MEDS: Heparin 5,000 Unit/mL Inj SUBQ SCH ×3 (01:59→17:34)
[2017-04-21] MEDS: HYDROmorphone 0.5 mg/0.5 mL iSecure Syringe IVPUSH PRN ×4 (02:03→12:57)
[2017-04-21 06:40] VITALS: BP 111/69; PULSE 86; RESP 16; O2SAT 93
--- NOTE | 2017-04-21 08:00 | NUR ---
Pain Patient reported 6/10 hip pain. 0.5mg Dilaudid given. Denies nausea at this time. Q2 turn. Call light and tray table within reach. Will continue to monitor patient hourly.
[2017-04-21] MEDS: Insulin LISPRO 300 Unit/3 mL Inj SUBQ SCH ×4 (08:20→22:00)
[2017-04-21] MEDS ORDERED: Venlafaxine XR 75 mg ER24 Capsule PO SCH (08:30)
--- NOTE | 2017-04-21 08:46 | PCM.PNMED ---
Subjective Date of Service Apr 21, 2017 Subjective Patient seen and examined. Pain controlled. Vitals noted Exam Vital Signs Vital Sign - Last Date Time Temp Pulse Resp B/P Pulse Ox O2 Delivery O2 Flow Rate FiO2 04/21/17 06:40 36.9 86 16 111/69 93 Room Air Intake and Output 04/20/17 04/20/17 04/21/17 Cumulative From/Thru 15:00 23:00 07:00 04/20/17 17:22 - 04/21/17 06:40 Intake Total 700 ml 700 ml Output Total 1050 ml 1050 ml Balance -350 ml -350 ml Intake Oral 700 ml 700 ml Output Urine Total 1050 ml 1050 ml # Voids 3 3 # Bowel Movements 0 0 Exam Constitutional: Awake, Alert and oriented x3, no acute distress Heart: regular rate and rhythm. no murmurs, rubs. or gallops. No peripheral edema, peripheral pulses intact bilaterally. Lungs: clear to auscultation bilaterally, no wheeze, rales, or rhonchi. Right sided rib tenderness to palpaiton along lateral ribs 8-9. ABD: soft, nontender, bowel sounds present throughout Musculoskeletal: Moves bilateral UE without pain. Unable to move LLE extremity secondary to pain. Able to move RLE. Neuro: CN II-XII intact. no focal deficits. Normal senstion to bilateral lower extremities. Lab and Diagnostics Result Diagram: 04/20/17205504/20/172055 X-Rays, CTs and MRIs PROCEDURE: X-RAY LEFT HIP COMPLETE, MINIMUM TWO VIEWS IMPRESSION: Proximal left femoral fracture. Arthroplasty appears intact. Dictated by: Senia Bautista M.D. on 04/20/2017 at 18:06 PROCEDURE: X-RAY CHEST ONE VIEW, PORTABLE IMPRESSION: 1. Slight appearance of lucency below the right hemidiaphragm, as described above. This is suspected to be related to interposition of colon, given the appearance on prior exam. However, if there is concern for free air, abdominal series is recommended for additional evaluation. Dictated by: Senia Bautista M.D. on 04/20/2017 at 21:07 Assessment & Plan Patient is a 81 y/o male with past medical history of CAD with multiple stents, non-insulin requiring type 2 Diabetes, and Obstructive Sleep Apnea who presents after a ground level fall earlier today around 1700. Patient has a proximal left femoral fracture. - Acute Fracture of the Left Proximal Femur, POA, Active, Stable - Patient experienced a fracture from a ground level fall, no LOC, no displacement - Ortho was consulted and will evaluate patient tomorrow, recommends partial weight bearing with PT tomorrow to evaluate function - Dilaudid prn , oral hydrocodone prn - Serum Vitamin D to evaluate for Osteoporosis due to fracture after a ground level fall. - PT ordered - SubQ Heparin for DVT prophylaxis. -Acute Leukocytosis, POA, Active, Stable - Patient has a WBC of 12 without a left shift, likely secondary to stress reaction - afebrile, no signs of acute infection - UA negative for infection -History of Obstructive Sleep Apnea, Chronic, Stable - Nightly CPAP oxygen - History of DMT2, Chronic, Stable - Hold home dose of Metformin - Insulin gtt - History of HTN, Chronic, Stable - Continue home dose Metoprolol - Continue home dose of Losartan - History of BPH - on flomax, will continue - Depression /anxiety - takes cymbalta, will continue - Electrolyte abnormalities - takes KCL everyday, will continue - replete as needed PATIENT IS FULL CODE Due to complexity of case and level of care needed, patient is admitted under inpatient status with an expected length of stay greater than 2 midnights. GI Prophylaxis: Proton Pump Inhibitor VTE Prophylaxis: Sub-Q Heparin (Unfractionated), SCDs VTE Mechanical Devices: Intermittant Pneumatic CD Resuscitation Status: CPR: Attempt Resuscitation Time spent 35 mins Jalen Rico MD Apr 21, 2017 08:46
[2017-04-21] MEDS: MeTOProlol XL 50 mg ER24 Tablet PO SCH (09:28)
[2017-04-21 09:30] VITALS: BP 128/70; PULSE 100
--- NOTE | 2017-04-21 10:06 | PCM.PNORTH ---
Subjective Date of Service: Apr 21, 2017 Visit Information: Reason for Visit Left Hip Fracture Surgery/Surgery Date Post-Op Day # Date of Admission: Apr 20, 2017 at 19:17 Hospital Day # Subjective Patient states he has pain in his hip. He states he has been unable to lift his leg at this point. Postop General: No Shortness of Breath Pain Management: PO Objective Exam Objective Patient sitting up in bed Vital Signs and I/O Vital Sign - Last Date Time Temp Pulse Resp B/P Pulse Ox O2 Delivery O2 Flow Rate FiO2 04/21/17 09:35 Supplement Oxygen 04/21/17 09:30 100 128/70 04/21/17 06:40 36.9 16 93 Intake and Output 04/20/17 04/20/17 04/21/17 Cumulative From/Thru 15:00 23:00 07:00 04/20/17 17:22 - 04/21/17 06:40 Intake Total 700 ml 700 ml Output Total 1050 ml 1050 ml Balance -350 ml -350 ml Intake Oral 700 ml 700 ml Output Urine Total 1050 ml 1050 ml # Voids 3 3 # Bowel Movements 0 0 Lab & Micro Results Laboratory Tests Test 04/20/17 20:56 04/20/17 21:31 04/20/17 23:18 White Blood Count 12.5th/mm3 (3.8-10.1) Red Blood Count 4.24mil/mm3 (4.40-5.80) Hemoglobin 13.9g/dL (13.8-17.2) Hematocrit 40.1% (41.0-50.0) Mean Corpuscular Volume 94.6fL (81-100) Mean Corpuscular Hemoglobin 32.8pg (27.0-35.0) Mean Corpuscular Hemoglobin Concent 34.7% (32.0-37.0) Red Cell Distribution Width 12.1% (12.3-15.4) Platelet Count 184bil/L (150-400) Neutrophils (%) (Auto) 65.9% (40-74) Lymphocytes (%) (Auto) 22.6% (14-46) Monocytes (%) (Auto) 9.2% (4-12) Eosinophils (%) (Auto) 1.8% (0-5) Basophils (%) (Auto) 0.2% (0-3) Prothrombin Time 11.1sec (8.1-12.5) Prothromb Time International Ratio 1.04ratio Sodium Level 135mEq/L (134-144) Potassium Level 4.2mEq/L (3.5-5.2) Chloride Level 98mEq/L (97-108) Carbon Dioxide Level 24mmol/L (18-29) Blood Urea Nitrogen 12mg/dL (8-27) Creatinine 0.93mg/dL (0.76-1.27) Estimat Glomerular Filtration Rate 83mL/min (>59) Glucose Level 124mg/dL (60-99) Calcium Level 8.9mg/dL (8.5-10.1) Total Bilirubin 0.6mg/dL (0.0-1.2) Aspartate Amino Transf (AST/SGOT) 22U/L (0-50) Alanine Aminotransferase (ALT/SGPT) 16U/L (0-44) Alkaline Phosphatase 54U/L (25-160) Total Protein 7.7g/dL (6.4-8.4) Albumin 3.9g/dL (3.4-5.0) Hold Ledesma Top Tube Received (Received) Urine Color Yellow (YELLOW) Urine Appearance Clear (CLEAR,HAZY) Urine pH 6.0 (5.0-8.0) Urine Specific [place] 1.010 (1.003-1.035) Urine Protein Negativemg/dL (NEG,TRACE) Urine Glucose (UA) Negativemg/dL (NEGATIVE) Urine Ketones Negativemg/dL (NEGATIVE) Urine Occult Blood Negative (NEGATIVE) Urine Nitrite Negative (NEGATIVE) Urine Bilirubin Negative (NEGATIVE) Urine Urobilinogen Normalmg/dL (NORMAL) Urine Leukocyte Esterase Negative (NEGATIVE) Urine RBC 0-2/hpf (0-2) Urine WBC 0-5/hpf (0-5) Urine Epithelial Cells Occasional/hpf (NONE-MOD) Urine Crystals None seen (NONE SEEN) Urine Bacteria Few/hpf (NONE-FEW) Urine Hyaline Casts Occasional/lpf (NONE) Urine Granular Casts None seen (NONE SEEN) Urine Waxy Casts None seen (NONE SEEN) Urine Red Blood Cell Casts None seen (NONE SEEN) Urine White Blood Cell Casts None seen (NONE SEEN) Urine Mucus None seen (None Seen) Urine Trichomonas None seen (NONE SEEN) Urine Yeast None (NONE SEEN) Urinalysis Comment None Urine Culture Reflexed Not indicated Result Diagram: 04/20/17205504/20/172055 General Appearance: Alert, Oriented X3, Cooperative, No Acute Distress Extremities: Distal Pulses Palpable, No Compartment Syndrom Noted Postop Sensory Motor: Distal Motor Intact (able to lift leg off bed approximately 1cm), Movement in Toes Activity: Ambulate with PT Assessment & Plan Impression Left greater troch fracture Problems: Plan Weightbearin% weightbearing on left lower extremity. Physical therapy for transfers, progressive ambulation, strengthening. We will reassess after today's physical therapy. Analgesia: Oral antibiotics Discharge plan: Will reassess after physical therapy and determine is surgical intervention is necessary vs conservative measures such as PT. VTE Prophylaxis: Sub-Q Heparin (Unfractionated), SCDs Resuscitation Status: CPR: Attempt Resuscitation Natalee Herring PA-C Apr 21, 2017 10:06
--- NOTE | 2017-04-21 13:42 | NUR ---
Evaluation completed. Please go to "Notes" then click on "Assessments and Notes" (bottom left corner of screen). Then select appropriate discipline tab on top of screen.
[2017-04-21] MEDS: HYDROcodone-APAP 10-325 mg PO PRN ×2 (13:45→22:20)
[2017-04-21 16:21] VITALS: BP 125/69; PULSE 99; RESP 18; O2SAT 93
[2017-04-21 19:40] VITALS: BP 108/69; PULSE 91; RESP 16; O2SAT 93
[2017-04-21] MEDS: DULoxetine 30 mg DR Capsule PO SCH (22:13)
[2017-04-22] MEDS: Heparin 5,000 Unit/mL Inj SUBQ SCH ×3 (01:19→16:50)
[2017-04-22 04:08] LABS: Vitamin D, 25-Hydroxy 23.5 ng/mL (30.0-100.0)
[2017-04-22] MEDS: HYDROcodone-APAP 10-325 mg PO PRN ×3 (04:27→21:30)
[2017-04-22 05:53] VITALS: BP 123/72; PULSE 70; RESP 16; O2SAT 95
--- NOTE | 2017-04-22 07:45 | NUR ---
Pain Patient states he is ready to head home. Pain level well managed with oral pain medication. Patient sleeping much of the night in room with by bedside. 2L O2 at night. ELGIN positive. A&OX3. Care continues.
[2017-04-22] MEDS: Insulin LISPRO 300 Unit/3 mL Inj SUBQ SCH ×4 (08:00→21:31)
--- NOTE | 2017-04-22 08:48 | PCM.PNORTH ---
Subjective Date of Service: Apr 22, 2017 Visit Information: Reason for Visit Left Hip Fracture Surgery/Surgery Date Post-Op Day # Date of Admission: Apr 20, 2017 at 19:17 Hospital Day # Subjective Patient and his do not recall speaking with me yesterday. They also cannot recall if Dr. Watson spoke with them last evening but do refer to the conversation and plan they discussed at that time. Patient states his pain is improving and he is eager to get out of bed. Postop General: No Shortness of Breath Pain Management: PO Objective Exam Objective Patient sitting up in bed Vital Signs and I/O Vital Sign - Last Date Time Temp Pulse Resp B/P Pulse Ox O2 Delivery O2 Flow Rate FiO2 04/22/17 05:53 36.6 70 16 123/72 95 Room Air Intake and Output 04/21/17 04/21/17 04/22/17 Cumulative From/Thru 15:00 23:00 07:00 04/20/17 17:22 - 04/22/17 05:53 Intake Total 1600 ml 850 ml 3150 ml Output Total 550 ml 1050 ml 2650 ml Balance 1050 ml -200 ml 500 ml Intake Oral 1600 ml 850 ml 3150 ml Output Urine Total 550 ml 1050 ml 2650 ml # Voids 3 4 10 # Bowel Movements 0 0 Lab & Micro Results Laboratory Tests Test 04/22/17 05:00 White Blood Count 9.2th/mm3 (3.8-10.1) Result Diagram: 04/22/17 0500 04/20/176 General Appearance: Alert, Oriented X3, Cooperative, No Acute Distress Extremities: Distal Pulses Palpable, No Compartment Syndrom Noted, Tenderness/ Swelling Noted (Mild TTP over great troch) Postop Sensory Motor: Distal Motor Intact, Movement in Toes, Distal Sensation Intact, NVI Distally Activity: Ambulate with PT Assessment & Plan Impression Left trochanteric fracture of hip, status post total hip arthroplasty. Problems: Plan After discussing with the patient, his and Dr. Watson, it is agreed that patient will continue to do physical therapy for another week. He will then be reevaluated in our office next week with new xrays. We will reassess at that time whether to continue PT vs move forward with surgical intervention Weightbearin% weightbearing on left lower extremity. Physical therapy for transfers, progressive ambulation, strengthening. Analgesia: Oral analgesia Discharge plan: Patient may be discharged when cleared by PT. It is my recommendation at this time that he be discharged to a SNF as home health PT will not be a safe option. Follow up: Patient will follow up with Dr. Watson or Krissy Dang in one week at [facility] with xrays. VTE Prophylaxis: Sub-Q Heparin (Unfractionated), SCDs Resuscitation Status: CPR: Attempt Resuscitation Natalee Herring PA-C Apr 22, 2017 08:48
--- NOTE | 2017-04-22 09:22 | PCM.PNMED ---
Subjective Date of Service Apr 22, 2017 Subjective Patient seen and examined. Pain controlled partially, will increase the frequency. Vitals noted. Exam Vital Signs Vital Sign - Last Date Time Temp Pulse Resp B/P Pulse Ox O2 Delivery O2 Flow Rate FiO2 04/22/17 05:53 36.6 70 16 123/72 95 Room Air Intake and Output 04/21/17 04/21/17 04/22/17 Cumulative From/Thru 15:00 23:00 07:00 04/20/17 17:22 - 04/22/17 05:53 Intake Total 1600 ml 850 ml 3150 ml Output Total 550 ml 1050 ml 2650 ml Balance 1050 ml -200 ml 500 ml Intake Oral 1600 ml 850 ml 3150 ml Output Urine Total 550 ml 1050 ml 2650 ml # Voids 3 4 10 # Bowel Movements 0 0 Exam Constitutional: Awake, Alert and oriented x3, no acute distress Heart: regular rate and rhythm. no murmurs, rubs. or gallops. No peripheral edema, peripheral pulses intact bilaterally. Lungs: clear to auscultation bilaterally, no wheeze, rales, or rhonchi. Right sided rib tenderness to palpaiton along lateral ribs 8-9. ABD: soft, nontender, bowel sounds present throughout Musculoskeletal: Moves bilateral UE without pain. Unable to move LLE extremity secondary to pain. Able to move RLE. Neuro: CN II-XII intact. no focal deficits. Normal senstion to bilateral lower extremities. Lab and Diagnostics Result Diagram: 04/22/17 0500 04/20/172055 X-Rays, CTs and MRIs PROCEDURE: X-RAY LEFT HIP COMPLETE, MINIMUM TWO VIEWS IMPRESSION: Proximal left femoral fracture. Arthroplasty appears intact. Dictated by: Senia Bautista M.D. on 04/20/2017 at 18:06 PROCEDURE: X-RAY CHEST ONE VIEW, PORTABLE IMPRESSION: 1. Slight appearance of lucency below the right hemidiaphragm, as described above. This is suspected to be related to interposition of colon, given the appearance on prior exam. However, if there is concern for free air, abdominal series is recommended for additional evaluation. Dictated by: Senia Bautista M.D. on 04/20/2017 at 21:07 Assessment & Plan Patient is a 81 y/o male with past medical history of CAD with multiple stents, non-insulin requiring type 2 Diabetes, and Obstructive Sleep Apnea who presents after a ground level fall earlier today around 1700. Patient has a proximal left femoral fracture. - Acute Fracture of the Left Proximal Femur, POA, Active, Stable - Patient experienced a fracture from a ground level fall, no LOC, no displacement - Ortho was consulted, recs: Weightbearin% weightbearing on left lower extremity. Physical therapy for transfers, progressive ambulation, strengthening. Oral analgesia recommendation at this time that he be discharged to a SNF as home health PT will not be a safe option. - switch to oral hydrocodone prn - Serum Vitamin D low, will start patient on oral supplements - SubQ Heparin for DVT prophylaxis. -Acute Leukocytosis, POA, Active, Stable - Patient has a WBC of 12 without a left shift, likely secondary to stress reaction - afebrile, no signs of acute infection - UA negative for infection -History of Obstructive Sleep Apnea, Chronic, Stable - Nightly CPAP oxygen - History of DMT2, Chronic, Stable - Hold home dose of Metformin - Insulin gtt - History of HTN, Chronic, Stable - Continue home dose Metoprolol - Continue home dose of Losartan - History of BPH - on flomax, will continue - Depression /anxiety - takes cymbalta, will continue - Electrolyte abnormalities - takes KCL everyday, will continue - replete as needed PATIENT IS FULL CODE Due to complexity of case and level of care needed, patient is admitted under inpatient status with an expected length of stay greater than 2 midnights. GI Prophylaxis: Proton Pump Inhibitor VTE Prophylaxis: Sub-Q Heparin (Unfractionated), SCDs VTE Mechanical Devices: Intermittant Pneumatic CD Resuscitation Status: CPR: Attempt Resuscitation Time spent 35 mins Jalen Rico MD Apr 22, 2017 09:22
[2017-04-22 10:05] VITALS: BP 113/75; PULSE 90
[2017-04-22] MEDS: MeTOProlol XL 50 mg ER24 Tablet PO SCH (10:09)
--- NOTE | 2017-04-22 13:47 | NUR ---
Social Work- Initial Assessment/ Readiness for Discharge/ Multidisciplinary Rounds Data: See Initial Assessment and Advance Directive Intervention for additional information. Pt discussed in rounds. Pt will not receive surgical intervention at this time. Pt will need SNF at discharge, SNF order received. PT is recommending SNF. Pt is a 81 year old admitted for left hip fracture per H&P. Pt's insurance is [employer] and [employer]. Pt's PCP is Gurdeep Perez MD. Pt's readmit risk score is 2/8 low risk. SW met with pt at bedside regarding discharge plan, SW role explained. Pt alert and oriented x3. Pt's capacity for self-care assessed. Pt resides at [facility] on the independent side with spouse. Pt is independent with ADLs and self-care. Pt uses no DME at baseline but has a cane and walker available for use. Pt drives. Pt is unsure if he has history with services. Pt has history at [facility] for rehab. Pt has no DPOA on file and SW requested that pt bring in copy of DPOA. Pt reports that this paperwork is in the process of being completed. SW discussed SNF recommendation with pt and pt is now agreeable. [facility] tablet provided to pt and [facility] was chosen as choice for SNF. MARGARINE CHURN OPERATOR asked to make referral to [facility]. Paperwork and PASRR in folder. SW provided Discharge planning Checklist and requested that pt contact TOOL GRINDING MACHINE OPERATOR if needs identified. SW provided phone number and plan on whiteboard. Pt agreeable. SW will continue to follow. Assessment: Pt for whom SNF is medically indicated. Plan: Referral made to [facility]. Paperwork and PASRR in folder. SW will continue to follow. AMY Moulton Addendum: 04/22/17 at 1351 by MARY VASQUEZ Amended: Links added.
--- NOTE | 2017-04-22 15:08 | NUR ---
USP TRANSFER : Gave access to [facility] and faxed facesheet per COCOA ROOM OPERATOR and MD orders
--- NOTE | 2017-04-22 16:52 | NUR ---
Pain Patient reported 4/10 hip pain. 1 tab [place] given. Denies nausea. Patient repositions self with assistance. Call light and tray table within reach. Will continue to monitor patient hourly.
[2017-04-22 19:49] VITALS: BP 125/77; PULSE 94; RESP 20; O2SAT 95
[2017-04-22] MEDS: DULoxetine 30 mg DR Capsule PO SCH (21:30)
[2017-04-23] MEDS: Heparin 5,000 Unit/mL Inj SUBQ SCH ×2 (01:26→09:57)
--- NOTE | 2017-04-23 04:09 | NUR ---
PAIN Reported pain to hip at beginning of shift, relieved with norco. Reported no pain at bedtime and has been resting comfortably. Patient states that he wishes he had his cpap for better sleep. Patient encouraged to have family bring it in or take it with him to SNF. Q2h turns. Will continue to monitor.
[2017-04-23 05:15] VITALS: BP 113/73; PULSE 81; RESP 22; O2SAT 94
[2017-04-23] MEDS: Insulin LISPRO 300 Unit/3 mL Inj SUBQ SCH ×2 (09:54→13:01)
[2017-04-23] MEDS: MeTOProlol XL 50 mg ER24 Tablet PO SCH (09:55)
[2017-04-23 10:05] VITALS: BP 111/69; PULSE 85; RESP 20; O2SAT 92
--- NOTE | 2017-04-23 11:38 | PCM.DC.MED ---
Discharge Summary Date of Service Apr 23, 2017 Dates of Hospitalization Date of Hospital Admission Apr 20, 2017 at 19:17 Date of Discharge: Apr 23, 2017 Providers: Admitting Physician: Andrea Lazaro MD Primary Care Physician: Gurdeep Perez MD Attending Physician: Jalen Rico MD Diagnosis at Time of Discharge Diagnosis at Time of Discharge Acute Fracture of the Left Proximal Femur, POA, Active, Stable -Acute Leukocytosis, POA, Active, resolved. -History of Obstructive Sleep Apnea, Chronic, Stable - History of DMT2, Chronic, Stable - History of HTN, Chronic, Stable - History of BPH - Depression /anxiety - Electrolyte abnormalities Procedures XRay, CTs & MRIs PROCEDURE: X-RAY LEFT HIP COMPLETE, MINIMUM TWO VIEWS IMPRESSION: Proximal left femoral fracture. Arthroplasty appears intact. Dictated by: Senia Bautista M.D. on 04/20/2017 at 18:06 PROCEDURE: X-RAY CHEST ONE VIEW, PORTABLE IMPRESSION: 1. Slight appearance of lucency below the right hemidiaphragm, as described above. This is suspected to be related to interposition of colon, given the appearance on prior exam. However, if there is concern for free air, abdominal series is recommended for additional evaluation. Dictated by: Senia Bautista M.D. on 04/20/2017 at 21:07 Brief History Per HPI by Dr. Lama on 04/20/17 Patient is a 81 y/o male with past medical history of CAD with multiple stents, non-insulin requiring type 2 Diabetes, and Obstructive Sleep Apnea who presents after a ground level fall earlier today around 1700. Patient was standing up from his chair when he lost his balance and fell on his left side. Patient denies striking his head, LOC, or any other trauma from the fall. Patient denies any lightheadedness, dizziness, CP, SOB, palpitations, N/V /D, or urinary sxs. Patient reports 6/10 dull pain on the posterior portion of his left hip. Denies any numbness or tingling in his lower extremities. Patient does state that over the past few years, he has felt unsteady on his feet, but attributes this to age. He states that two weeks ago he was bending down to pick something up and bumped his right side which has caused him pain in his right ribs. Pt c/o 6/10 pain in his right ribs in the ED. Hospital Course Patient is a 81 y/o male with past medical history of CAD with multiple stents, non-insulin requiring type 2 Diabetes, and Obstructive Sleep Apnea who presents after a ground level fall earlier today around 1700. Patient has a proximal left femoral fracture. - Acute Fracture of the Left Proximal Femur, POA, Active, Stable - Patient experienced a fracture from a ground level fall, no LOC, no displacement - Ortho Discharge Recs: Weightbearin% weightbearing on left lower extremity. Physical therapy for transfers, progressive ambulation, strengthening. Oral analgesia -recommendation at this time that he be discharged to a SNF as home health PT will not be a safe option. -Follow up with Dr. Watson or Krissy Dang in one week at [facility] with xrays -will reassess at that time whether to move forward with surgical intervention. -Acute Leukocytosis, POA, Active, resolved. - Patient has a WBC of 12 without a left shift, likely secondary to stress reaction - afebrile, no signs of acute infection - UA negative for infection -History of Obstructive Sleep Apnea, Chronic, Stable - Nightly CPAP oxygen - History of DMT2, Chronic, Stable - Hold home dose of Metformin, SSI. - Can resume Metformin upon discharge.e - History of HTN, Chronic, Stable - Continue home dose Metoprolol - Continue home dose of Losartan - History of BPH - on flomax, will continue - Depression /anxiety - takes cymbalta, will continue - Electrolyte abnormalities - takes KCL everyday, will continue - replete as needed Dispo- discharge to [facility] for Physical therapy for transfers, progressive ambulation, strengthening. -Follow up with Dr. Watson or Krissy Dang in one week at [facility] with xrays -will reassess at that time whether to move forward with surgical intervention. Exam Vital Signs (Last) Date Time Temp Pulse Resp B/P Pulse Ox O2 Delivery O2 Flow Rate FiO2 04/23/17 10:05 36.6 85 20 111/69 92 Room Air 04/23/17 05:15 3.00 Test 04/20/17 20:56 04/20/17 21:31 04/20/17 23:18 04/22/17 05:00 Red Blood Count 4.24mil/mm3 (4.40-5.80) Hemoglobin 13.9g/dL (13.8-17.2) Hematocrit 40.1% (41.0-50.0) Mean Corpuscular Volume 94.6fL (81-100) Mean Corpuscular Hemoglobin 32.8pg (27.0-35.0) Mean Corpuscular Hemoglobin Concent 34.7% (32.0-37.0) Red Cell Distribution Width 12.1% (12.3-15.4) Platelet Count 184bil/L (150-400) Neutrophils (%) (Auto) 65.9% (40-74) Lymphocytes (%) (Auto) 22.6% (14-46) Monocytes (%) (Auto) 9.2% (4-12) Eosinophils (%) (Auto) 1.8% (0-5) Basophils (%) (Auto) 0.2% (0-3) Prothrombin Time 11.1sec (8.1-12.5) Prothromb Time International Ratio 1.04ratio Sodium Level 135mEq/L (134-144) Potassium Level 4.2mEq/L (3.5-5.2) Chloride Level 98mEq/L (97-108) Carbon Dioxide Level 24mmol/L (18-29) Blood Urea Nitrogen 12mg/dL (8-27) Creatinine 0.93mg/dL (0.76-1.27) Estimat Glomerular Filtration Rate 83mL/min (>59) Glucose Level 124mg/dL (60-99) Calcium Level 8.9mg/dL (8.5-10.1) Total Bilirubin 0.6mg/dL (0.0-1.2) Aspartate Amino Transf (AST/SGOT) 22U/L (0-50) Alanine Aminotransferase (ALT/SGPT) 16U/L (0-44) Alkaline Phosphatase 54U/L (25-160) Total Protein 7.7g/dL (6.4-8.4) Albumin 3.9g/dL (3.4-5.0) Vitamin B12 Level 651pg/mL (211-946) Vitamin D 25-Hydroxy 23.5ng/mL (30.0-100.0) Hold Ledesma Top Tube Received (Received) Urine Color Yellow (YELLOW) Urine Appearance Clear (CLEAR,HAZY) Urine pH 6.0 (5.0-8.0) Urine Specific [place] 1.010 (1.003-1.035) Urine Protein Negativemg/dL (NEG,TRACE) Urine Glucose (UA) Negativemg/dL (NEGATIVE) Urine Ketones Negativemg/dL (NEGATIVE) Urine Occult Blood Negative (NEGATIVE) Urine Nitrite Negative (NEGATIVE) Urine Bilirubin Negative (NEGATIVE) Urine Urobilinogen Normalmg/dL (NORMAL) Urine Leukocyte Esterase Negative (NEGATIVE) Urine RBC 0-2/hpf (0-2) Urine WBC 0-5/hpf (0-5) Urine Epithelial Cells Occasional/hpf (NONE-MOD) Urine Crystals None seen (NONE SEEN) Urine Bacteria Few/hpf (NONE-FEW) Urine Hyaline Casts Occasional/lpf (NONE) Urine Granular Casts None seen (NONE SEEN) Urine Waxy Casts None seen (NONE SEEN) Urine Red Blood Cell Casts None seen (NONE SEEN) Urine White Blood Cell Casts None seen (NONE SEEN) Urine Mucus None seen (None Seen) Urine Trichomonas None seen (NONE SEEN) Urine Yeast None (NONE SEEN) Urinalysis Comment None Urine Culture Reflexed Not indicated White Blood Count 9.2th/mm3 (3.8-10.1) Discharge Medications Discharge Medications Aspirin (Aspirin) 81 Mg Tablet 81 MG PO DAILY (Reported) Atorvastatin Calcium (Atorvastatin Calcium) 40 Mg Tablet 40 MG PO HS (Reported) Clopidogrel (Clopidogrel) 75 Mg Tablet 75 MG PO DAILY Prescribed by: SANDHYA MEEHAN MD Diphenhydramine Hcl (Benadryl) 50 Mg Capsule 25 MG PO HS (Reported) Losartan Potassium (Losartan Potassium) 25 Mg Tablet 25 MG PO DAILY (Reported) Metformin (Metformin) 500 Mg Tablet 500 MG PO BID (Reported) Metoprolol Succinate ER (Metoprolol Succinate ER) 50 Mg Tab.er.24h 50 MG PO DAILY Prescribed by: SANDHYA MEEHAN MD Montelukast (Montelukast) 10 Mg Tablet 10 MG PO HS (Reported) Multivitamin (Multi Vitamin Daily) 1 Each Tablet 1 EACH PO DAILY (Reported) [place]ora-3/Dha/Epa/Fish Oil ([place]ora-3 Fish Oil 1,000 mg Sfgl) 1,000 Mg Capsule 1, 000 MG PO DAILY (Reported) Omeprazole (Omeprazole) 20 Mg Capsule.dr 20 MG PO DAILY (Reported) Potassium Chloride (Potassium Chloride) 10 Meq Tab.er.prt 10 MEQ PO DAILY ( Reported) TAKE WITH FOOD Ranitidine (Ranitidine) 300 Mg Capsule 300 MG PO HS (Reported) Tamsulosin ER (Tamsulosin ER) 0.4 Mg Cap.er.24h 0.4 MG PO DAILY (Reported) As needed Albuterol HFA (Proair HFA) 8.5 Gm Hfa.aer.ad 2 PUFFS IH Q4 PRN PRN For Shortness of Breath (Reported) Hydrocodone-Acetaminophen 10-325 mg (Hydrocodone-Acetaminophen 10-325 mg) 1 Each Tablet 1 TABLET PO Q6H PRN PRN For Pain (Reported) Lorazepam (Lorazepam) 1 Mg Tablet 1-2 MG PO HS PRN PRN For Insomnia (Reported) Miscellaneous Medications Duloxetine (Duloxetine) 60 Mg Capsule.dr (Reported) Nitroglycerin SL (Nitroglycerin SL) 0.4 Mg Tab.subl 0.4 MG SL (Reported) Additional med instructions Hold Plavix until follow up with Surgery in 1 week. Continue Heparin for DVT prophylaxis. Resume Metformin. Followup Plan Disposition: Dispo- discharge to [facility] for Physical therapy for transfers, progressive ambulation, strengthening. Follow-up plan -Follow up with Dr. Watson or Krissy Dang in one week at [facility] with xrays -will reassess at that time whether to move forward with surgical intervention. Discharge Diet: Diabetic Provider: Lotus Dang PA-C Follow-up in: 1 week Time spent Greater than 30 minutes was spent in preparation of discharge with greater than 50% of that time dedicated to patient counseling and coordination of care. copies to: Gurdeep Perez MD, Navdeep MD Apr 23, 2017 11:38
[2017-04-23] MEDS ORDERED: HEPA500017 SUBQ (11:40)
--- NOTE | 2017-04-23 11:44 | PCM.DIMED ---
Discharge Instructions Date of Service Apr 23, 2017 Dates of Hospitalization Apr 20, 2017 at 19:17 Discharge Diagnosis Discharge Diagnosis Acute Fracture of the Left Proximal Femur, POA, Active, Stable -Acute Leukocytosis, POA, Active, resolved. -History of Obstructive Sleep Apnea, Chronic, Stable - History of DMT2, Chronic, Stable - History of HTN, Chronic, Stable - History of BPH - Depression /anxiety - Electrolyte abnormalities Medication Instructions Additional med instructions Hold Plavix until follow up with Surgery in 1 week. Continue Heparin for DVT prophylaxis. Resume Metformin. Diet Discharge Diet: Diabetic Patient Instructions Follow-up plan -Follow up with Dr. Watson or Krissy Dang in one week at [facility] with xrays -will reassess at that time whether to move forward with surgical intervention. Provider: Lotus Dang PA-C Follow-up in: 1 week Dequan Hassan MD Apr 23, 2017 11:44
--- NOTE | 2017-04-23 11:47 | NUR ---
Social Work- Readiness for Discharge/Multidisciplinary Rounds Data: EMR reviewed. Pt is on day 3 of hospitalization. Pt is medically stable for discharge. [facility] has accepted pt, able to accept today. Paperwork in chart, PASRR complete. Packet is complete, awaiting Rx and orders to fax over. Admissions at [facility] is coordinating transportation for 1430. RN and pt aware and agreeable. SW will continue to follow. Assessment: Pt for whom SNF is medically indicated. Plan: Pt to d/c to [facility] at 1430 via wheelchair van. Paperwork in chart. PASRR complete and will be faxed. Packet complete. SW will continue to follow. AMY Moulton
[2017-04-23] MEDS ORDERED: HYDR-3740 PO (12:45)
[2017-04-23] MEDS ORDERED: DULO60CA61 PO (12:45)
[2017-04-23] MEDS ORDERED: LORA1TAB PO (12:45)
--- NOTE | 2017-04-23 14:43 | NUR ---
Discharge Pt. discharged with belongings to [facility] via [facility] transporter. Alert and oriented x 4, vitals stable, agreeable with discharge. Discharge packet sent with transporter. Pt. transferred to wheelchair with assistance of BAND MASTER. Pt. left unit via wheelchair with transporter and member of [facility] staff.
== END 2017-04-23 14:43 | DRG 536 ==
LOC: SED 17:17 → OSC 19:17
PROVIDERS: ADMIT Hospitalist; ATTEND Internal Medicine
DX: S72.115A Nondisplaced fracture of greater trochanter of left femur, initial encounter for closed fracture (principal); G47.33 Obstructive sleep apnea (adult) (pediatric); I25.10 Atherosclerotic heart disease of native coronary artery without angina pectoris; K21.9 Gastro-esophageal reflux disease without esophagitis; E78.5 Hyperlipidemia, unspecified; I10 Essential (primary) hypertension; E66.9 Obesity, unspecified; N40.0 Benign prostatic hyperplasia without lower urinary tract symptoms; F41.8 Other specified anxiety disorders; W07.XXXA Fall from chair, initial encounter; Z79.51 Long term (current) use of inhaled steroids; Z79.82 Long term (current) use of aspirin; Z87.891 Personal history of nicotine dependence; Z79.84 Long term (current) use of oral hypoglycemic drugs; Z95.5 Presence of coronary angioplasty implant and graft; Y92.009 Unspecified place in unspecified non-institutional (private) residence as the place of occurrence of the external cause